=== PATIENT | female | born 1970 | race Caucasian/White ===

== ENCOUNTER 2021-04-21 04:59 | Day surgery (SDC) | payer OTHER ==
[2021-04-20 15:41] VITALS: BMI 24.9
[2021-04-21] MEDS ORDERED: ONDANSETRON 4 MG/2 ML VIAL IVPUSH PRN (14:06)
[2021-04-21] MEDS ORDERED: oxyCODONE HCL 5 MG TABLET PO PRN (14:06)
[2021-04-21] MEDS ORDERED: LACTATED RINGERS SOLUTION 1,000 ML IV SCH (14:15)
[2021-04-21] MEDS ORDERED: MIDAZOLAM HCL 2 MG/2 ML SINGLE DOSE VIAL ONE (14:43)
[2021-04-21] MEDS ORDERED: PROPOFOL 20 ML ONE (14:43)
[2021-04-21] MEDS ORDERED: ceFAZolin SODIUM 1 GM VIAL IVPB ONE (15:02)
[2021-04-21] MEDS ORDERED: ACETAMINOPHEN 325 MG TABLET (FP) PO PRN (15:55)
[2021-04-21] MEDS ORDERED: IBUPROFEN 400 MG TABLET (FP) PO PRN (15:55)
[2021-04-21] MEDS ORDERED: NALOXONE HCL 0.4 MG/ML VIAL ONE (16:14)
[2021-04-21] MEDS ORDERED: ACETAMINOPHEN 1000 MG/100 ML VIAL (NON FORMULARY) IVPB ONE (16:28)
[2021-04-21] MEDS ORDERED: ACETAMINOPHEN INJECTION 100 ML IVPB ONE (16:30)
[2021-04-21] MEDS ORDERED: oxyCODONE HCL 5 MG TABLET ONE (17:28)
[2021-04-21 19:42] VITALS: BP 100/61; PULSE 78; TEMP 97.8
== END 2021-04-21 19:28 | disposition home or self-care (01) ==
LOC: JASU-SURG 04:59
PROVIDERS: ATTEND Obstetrics & Gynecology
PROC: 0U5B8ZZ Destruction of Endometrium, Via Natural or Artificial Opening Endoscopic (ICD-10-PCS; principal; 2021-04-21 14:00)
PROC: 0UDB7ZX Extraction of Endometrium, Via Natural or Artificial Opening, Diagnostic (ICD-10-PCS; 2021-04-21 14:00)
DX: N92.0 Excessive and frequent menstruation with regular cycle (principal); N84.0 Polyp of corpus uteri
CPT/HCPCS: 88305-TC; 94760; J0131